=== PATIENT | male | born 1980 | race Caucasian/White ===

== ENCOUNTER 2017-08-20 20:57 | Emergency (ER) | payer OTHER ==
[~2017-08-20] VITALS: Ht 177.8 cm; Wt 126.1 kg
[~2017-08-20 20:57] MED LIST: ALPRAZOLAM2 M2 PO; SUBOXONE 8 MG-1 EACH SL
[2017-08-20 21:02] VITALS: BP 132/79
[2017-08-20] MEDS ORDERED: NARCAN4 MG IN (21:10)
--- NOTE | 2017-08-20 21:10 | ED GENERAL ADULT ---
History of Present Illness General Chief Complaint: ETOH/Drug Related Complaint Stated Complaint: BIBA OVERDOSE Source: patient Exam Limitations: no limitations Vital Signs & Intake/Output Vital Signs & Intake/Output Vital Signs Date Time Temp Pulse Resp B/P B/P Pulse O2 O2 Flow FiO2 Mean Ox Delivery Rate 08/20 2102 98.6 100 20 132/79 97 Room Air Room Air ED Intake and Output 08/21 0000 05 1200 Intake Total Output Total Balance Patient 278 lb Weight Weight Reported by Patient Measurement Method Allergies Coded Allergies: NO KNOWN ALLERGIES (NO) (08/05/10) Reconcile Medications Alprazolam 2 MG TABLET 1 TAB PO TID ANXIETY (Reported) Buprenorphine HCl/Naloxone HCl (Suboxone 8 MG-2 MG Sl Film) 1 EACH FILM 1 STR SL TID ADDICTION (Reported) Naloxone HCl (Narcan) 4 MG/ACTUATION SPRAY 1 SPRAY IN X1 PRN OVERDOSE Triage Note: BIBA FROM HOME S/P OVERDOSING ON 3 BAGS OF IV HEROIN. [place] [employer] ARRIVED ON SCENE, AND ADMINISTERED 0.4 INTRAMUSCULAR NARCAN. PATIENTS RESPIRTIONS WERE 4 AND AFTER NARCAN WERE 16. PATIENT ARRIVES TO ED ALERT, ORIENTED, SPEECH CLEAR. PATIENT DENIES SI/HI. PATIENT STATES THIS WAS AN ACCIDENTAL OVERDOSE. VITALS OBTAINED. PROVIDER AT BEDSIDE. Triage Nurses Notes Reviewed? yes Onset: Abrupt Duration: hour(s): Timing: single episode today Injury Environment: home Severity: moderate Modifying Factors: Improves With: other (better w/ narcan). Associated Symptoms: better with narcan HPI: 36 YO gentleman in prior good health, presents after a heroin overdose. Per the patient, "It's been a tough week.... a family member ... my daugther broke her leg... my and I have been arguing... I usually take suboxone, but haven't taken it for a few days... Tonight, I injected 3 bags... my called 911." Per the medics, he was cyanotic, was given narcan 0.4mg im x 1 by the police and revived immediately. He denies SI/HI/hallucinations or other drug abuse. He notes that he is feeling well and is committed to restarting his suboxone. Past History Travel History Traveled to [place] past 21 day No Medical History Any Pertinent Medical History? 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 No Review of Systems Review of Systems Constitutional: Reports: no symptoms. EENTM: Reports: no symptoms. Respiratory: Reports: no symptoms. Cardiovascular: Reports: no symptoms. GI: Reports: no symptoms. Genitourinary: Reports: no symptoms. Musculoskeletal: Reports: no symptoms. Skin: Reports: no symptoms. Neurological/Psychological: Reports: no symptoms. Hematologic/Endocrine: Reports: no symptoms. Immunologic/Allergic: Reports: no symptoms. All Other Systems: Reviewed and Negative Physical Exam Physical Exam General Appearance: well developed/nourished, no apparent distress Head: atraumatic, normal appearance Eyes: Bilateral: normal appearance, PERRL, EOMI. Ears, Nose, Throat: normal pharynx, normal ENT inspection Neck: normal inspection, supple, full range of motion Respiratory: normal breath sounds, chest non-tender, no respiratory distress, quiet respiration, lungs clear Cardiovascular: regular rate/rhythm Gastrointestinal: normal bowel sounds, soft, non-tender Back: normal inspection, normal range of motion Extremities: normal inspection, normal capillary refill, normal range of motion, no edema Neurologic/Psych: no motor/sensory deficits, awake, alert, oriented x 3 Skin: intact, normal color, warm/dry Core Measures ACS in differential dx? No CVA/TIA Diagnosis: No Sepsis Present: No Sepsis Focused Exam Completed? No Progress Differential Diagnoses I considered the following diagnoses in my evaluation of the patient: opioid abuse Plan of Care: discussed at length... pt awake and alert... monitoring in the ED. He declines crises intervention.... prescribed narcan. Initial ED EKG: none Departure Departure Disposition: HOME OR SELF CARE Condition: Stable Clinical Impression Primary Impression: Heroin abuse Referrals: Patient Has No Primary Care Dr (PCP/Family) Departure Forms: Customer Survey General Discharge Information Prescriptions: Current Visit Scripts Naloxone HCl (Narcan) 1 SPRAY IN X1 PRN OVERDOSE #2 KIT Ref 1 Comments after 2.5 hours of observation, pt is awake and alert... discussed with patient who declines case management. he denies SI/HI... rx for narcan sent to pharmacy. His also present for conversation. Critical Care Note Critical Care Note Critical Care Time: non-applicable
== END 2017-08-20 22:31 ==
LOC: ERH 20:57
DX: F11.10 Opioid abuse, uncomplicated (principal)